=== PATIENT | female | born 1980 | race Caucasian/White ===

== ENCOUNTER → 2021-01-12 12:34 | Outpatient (CLI) | payer BC, SELFPAY ==
--- NOTE | ~2021-01-12 | MM_ITS ---
EXAMINATION: MM screening rohith BI w vargas HISTORY: Screening TECHNIQUE: Craniocaudal and mediolateral oblique 3-D tomosynthesis images were obtained and synthetic 2-D images were generated. CAD analysis was submitted and interpreted. COMPARISON: No prior mammogram is available for comparison at this institution. BREAST PARENCHYMAL COMPOSITION: There are scattered areas of fibroglandular density. FINDINGS: There is focal asymmetry laterally in the right breast on CC view, posterior third. There i s an additional focal asymmetry laterally in the left breast on CC view, posterior third. There are n o suspicious calcifications or architectural distortion. IMPRESSION: 1. Bilateral breast asymmetries. 2. Additional mammographic views and possible breast ultrasound are recommended. BI-RADS Category 0: Incomplete: Needs additional imaging evaluation. Reviewed, dictated and finalized at location A. IMPRESSION: 1. Bilateral breast asymmetries. 2. Additional mammographic views and possible breast ultrasound are recommended . BI-RADS Category 0: Incomplete: Needs additional imaging evaluation.
== END ==
PROVIDERS: Visit Provider Obstetrics & Gynecology
DX: Z12.31 Encounter for screening mammogram for malignant neoplasm of breast (principal); R92.8 Other abnormal and inconclusive findings on diagnostic imaging of breast
CPT/HCPCS: 77063; 77067

== ENCOUNTER → 2021-02-20 14:21 | Outpatient (CLI) | payer BC, SELFPAY ==
--- NOTE | ~2021-02-20 | MMUS_ITS ---
EXAMINATION: MM diagnostic rohith BI w vargas, US breast BI complete HISTORY: Follow-up breast asymmetries TECHNIQUE: Additional 3-D tomosynthesis images of the breasts were performed and synthetic 2-D images were generated. CAD analysis was submitted and interpreted. High resolution bilateral complete breas t ultrasound was performed. COMPARISON: 01/12/2021 BREAST PARENCHYMAL COMPOSITION: Breast composed of scattered areas of fibroglandular density. FINDINGS: MAMMOGRAPHIC FINDINGS: There is subtle asymmetry in the upper outer quadrant of the left breast. There is no mammographic ev idence for malignancy in the left breast. There are no suspicious calcifications or architectural dis tortion in either breast. ULTRASOUND: Complete bilateral US of all 4 quadrants of the breasts and retroareolar region was reviewed. In the right breast at 5:00, 3 cm from the nipple, there is a cluster of microcysts measuring 6 mm. In the l eft breast at 11:00, 4 cm from the nipple, there is a cluster of microcysts measuring 5 mm. No suspic ious masses to suggest malignancy. IMPRESSION: 1. No evidence for malignancy in either breast. 2. Routine yearly screening mammogram and regular clinical breast examination are recommended. BI-RADS Category 2: Benign finding(s). Reviewed, dictated and finalized at location A. IMPRESSION: 1. No evidence for malignancy in either breast. 2. Routine yearly screening mammogram and regular clinical breast examination a re recommended. BI-RADS Category 2: Benign finding(s).
== END ==
PROVIDERS: Visit Provider Obstetrics & Gynecology
DX: R92.8 Other abnormal and inconclusive findings on diagnostic imaging of breast (principal)
CPT/HCPCS: 76641; 77062; 77066; G0279

== ENCOUNTER → 2021-08-18 18:11 | Outpatient (CLI) | payer BC, SELFPAY ==
--- NOTE | ~2021-08-18 | MR_ITS ---
EXAMINATION: MR knee LT wo con DATE: 08/18/2021 18:44 INDICATION: Pain in the left knee for one year since twisting the knee. TECHNIQUE: Magnetic resonance imaging (MRI) of the left knee was performed without intravenous contra st. Sequences included axial PD-weighted FS FSE, coronal PD-weighted FSE and PD-weighted FS FSE, sagi ttal PD-weighted FSE, and sagittal T2-weighted FS FSE. COMPARISON: None. FINDINGS: Medial compartment: Meniscus is intact. Diffuse severe thinning of cartilage along the femoral and tibial surfaces, with subchondral T2 hyperintensity and linear hypointensity that may reflect microtrabecular fracture. Ost eophytosis. Lateral compartment: Meniscus intact. Mild diffuse thinning of cartilage. Patellofemoral compartment: Cartilage fissure at the lateral facet. 4 mm ossified fragment with low signal margins, may reflect a fractured osteophyte or old osteochondral defect. Osteophytosis. Extensor mechanism intact. Trace re tropatellar bursa fluid. Ligaments and tendons: The MCL LCL, ACL, and PCL are intact. Fluid: Trace joint fluid. Osseous/other: The marrow signal is benign and homogenous, except as reported above. IMPRESSION: 1. Findings concerning for a developing osteochondral lesion in the medial compartment. 2. Chondromalacia patellae. Reviewed, dictated and finalized at location K. IMPRESSION: 1. Findings concerning for a developing osteochondral lesion in the medial comp artment. 2. Chondromalacia patellae.
== END ==
PROVIDERS: Visit Provider Physician Assistant
DX: M25.562 Pain in left knee (principal); M94.272 Chondromalacia, left ankle and joints of left foot
CPT/HCPCS: 73721

== ENCOUNTER → 2022-01-05 06:49 | Outpatient (CLI) | payer BC, SELFPAY ==
--- NOTE | ~2022-01-05 | MR_ITS ---
EXAMINATION: MR lumbar spine wo con DATE: 01/05/2022 07:22 INDICATION: Acute left-sided low back pain without sciatica. TECHNIQUE: Magnetic resonance imaging (MRI) of the lumbar spine was performed without intravenous con trast. Sequences included sagittal T2-weighted FSE, sagittal T2-weighted FS FSE, sagittal T1-weighted FSE, and axial T2-weighted FSE. COMPARISON: None FINDINGS: There is 5 degrees dextrocurvature of lumbar spine. There are Schmorl's nodes at all levels . There is mild chronic anterior wedging of T12 and L1 vertebral bodies, likely physiologic. Interver tebral disc heights are normal. The distal spinal cord signal intensity is normal. The conus medullar is is at L1. The following disc levels are specifically discussed: L1-L2: The disc does not extend beyond the endplate margin. There is mild bilateral facet joint osteo arthritis. There is no neural foraminal stenosis. There is no central canal stenosis. L2-L3: The disc does not extend beyond the endplate margin. There is mild bilateral facet joint osteo arthritis. There is no neural foraminal stenosis. There is no central canal stenosis. L3-L4: The disc does not extend beyond the endplate margin. There is mild bilateral facet joint osteo arthritis. There is no neural foraminal stenosis. There is no central canal stenosis. L4-L5: The disc is bulging. There is mild bilateral facet joint osteoarthritis. There is mild bilater al neural foraminal stenosis. There is mild central canal stenosis. L5-S1: The disc does not extend beyond the endplate margin. There is mild bilateral facet joint osteo arthritis. There is no neural foraminal stenosis. There is no central canal stenosis. IMPRESSION: 1. Mild lumbar spondylosis. Reviewed, dictated and finalized at location A. IMPRESSION: 1. Mild lumbar spondylosis.
== END ==
PROVIDERS: PCP Physician Assistant; Visit Provider Physician Assistant
DX: M47.896 Other spondylosis, lumbar region (principal)
CPT/HCPCS: 72148

== ENCOUNTER → 2022-02-01 09:05 | Outpatient (CLI) | payer BC, SELFPAY ==
--- NOTE | ~2022-02-01 | US_ITS ---
US thyroid INDICATION: Nontoxic thyroid goiter. TECHNIQUE: Real-time sonographic images of the thyroid gland were obtained. COMPARISON: No prior studies for comparison. FINDINGS: The right thyroid lobe measures 4.6 x 1.5 x 1.2 cm. The left thyroid lobe measures 3.7 x 1 .3 x 1.2 cm. There is normal echotexture and echogenicity throughout the thyroid gland. No discrete n odules identified. Normal vascular flow is present. IMPRESSION: 1. Normal thyroid without discrete nodule or abnormal vascularity. Reviewed, dictated and finalized at location A.
== END ==
PROVIDERS: PCP Physician Assistant; Visit Provider Internal Medicine Endocrinology, Diabetes & Metabolism
DX: E04.9 Nontoxic goiter, unspecified (principal)
CPT/HCPCS: 76536

== ENCOUNTER → 2022-03-08 14:01 | Outpatient (CLI) | payer BC, SELFPAY ==
--- NOTE | ~2022-03-08 | MM_ITS ---
EXAMINATION: MM screening rohith BI w vargas HISTORY: Screening mammogram TECHNIQUE: Craniocaudal and mediolateral oblique 3-D tomosynthesis images were obtained and synthetic 2-D images were generated. CAD analysis was submitted and interpreted. COMPARISON: 02/20/2021, 01/12/2021 BREAST PARENCHYMAL COMPOSITION: There are scattered areas of fibroglandular density. FINDINGS: RIGHT BREAST: No suspicious mass, calcification, or architectural distortion are identified to sugges t malignancy. There has been no suspicious interval change. LEFT BREAST: There is a possible mass in the middle third of the upper outer quadrant breast 8 cm fro m the nipple. IMPRESSION: 1. Possible left breast mass. 2. Additional mammographic views and possible breast ultrasound are recommended. BI-RADS Category 0: Incomplete: Needs additional imaging evaluation. Reviewed, dictated and finalized at location A. IMPRESSION: 1. Possible left breast mass. 2. Additional mammographic views and possible breast ultrasound are recommended . BI-RADS Category 0: Incomplete: Needs additional imaging evaluation.
== END ==
PROVIDERS: PCP Physician Assistant; Visit Provider Obstetrics & Gynecology
DX: Z12.31 Encounter for screening mammogram for malignant neoplasm of breast (principal); R92.8 Other abnormal and inconclusive findings on diagnostic imaging of breast
CPT/HCPCS: 77063; 77067

== ENCOUNTER → 2022-03-22 09:14 | Outpatient (CLI) | payer BC, SELFPAY ==
--- NOTE | ~2022-03-22 | MMUS_ITS ---
EXAMINATION: MM diagnostic rohith LT w vargas, US breast LT limited HISTORY: Possible left breast mass in middle third of upper outer quadrant 8 cm from nipple reported on 03/08/2022 screening mammogram TECHNIQUE: Additional 3-D tomosynthesis images of the left breast were performed and synthetic 2-D im ages were generated. CAD analysis was submitted and interpreted. High resolution upper outer and lowe r-outer quadrant left breast ultrasound was performed. COMPARISON: 03/08/2022 screening mammogram 02/20/2021 bilateral diagnostic mammography and complete bilateral breast ultrasound 01/12/2021 bilateral screening mammogram BREAST PARENCHYMAL COMPOSITION: There are scattered areas of fibroglandular density. FINDINGS: MAMMOGRAPHIC FINDINGS: An at least several low-density small circumscribed opacities measuring up to 7 mm are identified in the outer left breast. ULTRASOUND: 1:00 5 cm from nipple: 4.4 mm rounded sonolucency without internal vascularity or posterior shadowing , likely a small cyst. No suspicious mass or shadowing is detected elsewhere in the upper outer or lower quadrants of the le ft breast IMPRESSION: 1. Probable benign cyst at 1:00 5 cm from nipple 2. 6 month diagnostic left mammogram and left breast ultrasound follow-up are recommended to confirm stability BI-RADS category 3, probably benign findings. Reviewed, dictated and finalized at location A. BUILDER IMPRESSION: 1. Probable benign cyst at 1:00 5 cm from nipple 2. 6 month diagnostic left mammogram and left breast ultrasound follow-up are r ecommended to confirm stability BI-RADS category 3, probably benign findings.
== END ==
PROVIDERS: PCP Physician Assistant; Visit Provider Obstetrics & Gynecology
DX: N63.20 Unspecified lump in the left breast, unspecified quadrant (principal); R92.8 Other abnormal and inconclusive findings on diagnostic imaging of breast
CPT/HCPCS: 76642; 77061; 77065; G0279

== ENCOUNTER → 2022-08-29 10:17 | Outpatient (CLI) | payer BC, SELFPAY ==
--- NOTE | ~2022-08-29 | US_ITS ---
Renal-Bladder ultrasound Clinical History: Bladder sling, pelvic pressure Technique: Real-time sonographic imaging of the kidneys and urinary bladder was performed. Findings: The right kidney measures 11.3 cm in length and the left kidney measures 10.3 cm. There is no hydronephrosis or renal calculus identified. Renal cortical echogenicity is within normal limits. No renal mass lesion is identified. The urinary bladder is moderately distended at the time of this exam. No intraluminal echoes are iden tified. No abnormal wall thickening is seen. Impression: Unremarkable ultrasound of the kidneys and urinary bladder. Reviewed, dictated and finalized at location M. Impression: Unremarkable ultrasound of the kidneys and urinary bladder.
== END ==
PROVIDERS: PCP Physician Assistant; Visit Provider Nurse Practitioner Adult Health
DX: R10.2 Pelvic and perineal pain (principal)
CPT/HCPCS: 76770

== ENCOUNTER → 2022-10-10 08:32 | Outpatient (CLI) | payer BC, SELFPAY ==
--- NOTE | ~2022-10-10 | MMUS_ITS ---
EXAMINATION: MM diagnostic rohith LT w vargas, US breast LT complete HISTORY: Six-month follow-up of probably benign left 1:00 breast cyst TECHNIQUE: Full field and spot left 3-D tomosynthesis images were performed and synthetic 2-D images were generated. CAD analysis was submitted and interpreted. High resolution complete left breast ultr asound examination: All 4 quadrants and subareolar area was performed. COMPARISON: 03/22/2022 diagnostic left mammogram and limited left breast ultrasound 03/08/2022 bilateral screening mammogram 02/20/2021 bilateral diagnostic mammography and complete bilateral breast ultrasound examination BREAST PARENCHYMAL COMPOSITION: There are scattered areas of fibroglandular density. FINDINGS: MAMMOGRAPHIC FINDINGS: At least several subcentimeter circumscribed opacities are noted in the posterior mid outer left rodri st (craniocaudal Tomosynthesis image 31/78). Approximately 7 mm mass or composite shadowing the anterior inner left breast (craniocaudal Tomosynth esis image 25/78). ULTRASOUND: 1:00 6.5 cm from nipple: 6.6 x 7.5 x 8.9 mm circumscribed sonolucency without internal vascularity or posterior shadowing, most consistent with simple cyst 9:00 5 cm from nipple: 3 x 6.6 x 5.9 mm parallel circumscribed heterogeneous mixed hypoechoic and hyp erechoic lesion, without internal vascularity or posterior shadowing, which appears benign No suspicious mass or shadowing of the left breast is detected. IMPRESSION: 1. Benign findings 2. Routine annual mammographic screening is recommended BI-RADS Category 2: Benign finding(s). Reviewed, dictated and finalized at location A. IMPRESSION: 1. Benign findings 2. Routine annual mammographic screening is recommended BI-RADS Category 2: Benign finding(s).
== END ==
PROVIDERS: PCP Physician Assistant; Visit Provider Obstetrics & Gynecology
DX: N60.02 Solitary cyst of left breast (principal)
CPT/HCPCS: 76641; 77061; 77065; G0279

== ENCOUNTER → 2023-05-02 11:36 | Outpatient (CLI) | payer OTHER, SELFPAY ==
--- NOTE | ~2023-05-02 | MM_ITS ---
EXAMINATION: MM screening rohith BI w vagras HISTORY: Screening mammogram TECHNIQUE: Craniocaudal and mediolateral oblique 3-D tomosynthesis images were obtained and synthetic 2-D images were generated. CAD analysis was submitted and interpreted. COMPARISON: 10/10/2022 diagnostic left mammogram and complete left breast ultrasound examination 03/22/2022 diagnostic left mammogram and limited left breast ultrasound 03/08/2022 bilateral screening mammogram BREAST PARENCHYMAL COMPOSITION: There are scattered areas of fibroglandular density. FINDINGS: Bilateral breast masses are suggested. Bilateral diagnostic mammography and breast ultrasou nd examination are recommended. IMPRESSION: 1. Bilateral breast masses 2. Bilateral diagnostic mammogram and breast ultrasound examination are recommended BI-RADS Category 0: Incomplete: Needs additional imaging evaluation. Reviewed, dictated and finalized at location A. OP IMPRESSION: 1. Bilateral breast masses 2. Bilateral diagnostic mammogram and breast ultrasound examination are recomme nded BI-RADS Category 0: Incomplete: Needs additional imaging evaluation.
== END ==
PROVIDERS: PCP Physician Assistant; Visit Provider Obstetrics & Gynecology
DX: Z12.31 Encounter for screening mammogram for malignant neoplasm of breast (principal); R92.8 Other abnormal and inconclusive findings on diagnostic imaging of breast
CPT/HCPCS: 77063; 77067

== ENCOUNTER → 2023-05-28 14:20 | Outpatient (CLI) | payer OTHER, SELFPAY ==
--- NOTE | ~2023-05-28 | MMUS_ITS ---
EXAMINATION: MM diagnostic rohith BI w vargas, US breast BI complete HISTORY: Follow-up bilateral breast masses. TECHNIQUE: Additional 3-D tomosynthesis images of the breasts were performed and synthetic 2-D images were generated. CAD analysis was submitted and interpreted. High resolution bilateral complete breas t ultrasound was performed. COMPARISON: Comparison to multiple prior studies sequentially, with oldest reviewed study dated 06/2020. BREAST PARENCHYMAL COMPOSITION: Breast composed of scattered areas of fibroglandular density FINDINGS: MAMMOGRAPHIC FINDINGS: There is an 11 mm mass in the upper outer quadrant of the right breast, middle third. There is a 12 m m mass in the upper outer quadrant of the left breast, midposterior depth. There are no suspicious ca lcifications or architectural distortion. ULTRASOUND: Complete bilateral US of all 4 quadrants of the breasts and retroareolar region was reviewed. Right breast: At 9:00, 9 cm from the nipple there is an 11 mm cyst. Left breast: At 1:00, 7 cm from the nipple there is an 11 mm cyst. At 9:00, 5 cm from the nipple, the re is a 6 mm cluster of microcysts. IMPRESSION: 1. No evidence for malignancy in either breast. Benign findings. 2. Routine yearly screening mammogram and regular clinical breast examination are recommended. BI-RADS Category 2: Benign finding(s). Reviewed, dictated and finalized at location A. CLERK IMPRESSION: 1. No evidence for malignancy in either breast. Benign findings. 2. Routine yearly screening mammogram and regular clinical breast examination a re recommended. BI-RADS Category 2: Benign finding(s).
== END ==
PROVIDERS: PCP Obstetrics & Gynecology; Visit Provider Obstetrics & Gynecology
DX: N63.11 Unspecified lump in the right breast, upper outer quadrant (principal); N63.21 Unspecified lump in the left breast, upper outer quadrant
CPT/HCPCS: 76641; 77062; 77066; G0279

== ENCOUNTER → 2023-07-09 13:28 | Outpatient (CLI) | payer OTHER, SELFPAY ==
--- NOTE | ~2023-07-09 | XR_ITS ---
EXAM: XR toe 1st RT min 2V DATE: 07/09/2023 13:44 HISTORY: Pain in right toe(s) . COMPARISON: None available. FINDINGS: Normal mineralization. No fracture or dislocation. No lytic or blastic lesion. Moderate de generative change at the first MTP joint. Bipartite first digit lateral sesamoid. No erosion or perio steal change. Soft tissues within normal limits. IMPRESSION: Moderate first MTP joint osteoarthritis. Reviewed, dictated and finalized at location K. EKEEPING ASSOCIATE
== END ==
PROVIDERS: PCP Physician Assistant; Visit Provider Physician Assistant
DX: M19.071 Primary osteoarthritis, right ankle and foot (principal)
CPT/HCPCS: 73660

== ENCOUNTER 2024-06-25 09:22 | Outpatient (CLI) | payer OTHER, SELFPAY ==
--- NOTE | ~2024-06-25 | MMUS_ITS ---
EXAMINATION: MM diagnostic rohith BI w vargas, US breast BI complete HISTORY: Follow-up breast asymmetries. TECHNIQUE: Additional 3-D tomosynthesis images of the breasts were performed and synthetic 2-D images were generated. CAD analysis was submitted and interpreted. High resolution bilateral complete breas t ultrasound was performed. COMPARISON: Comparison to multiple prior studies sequentially, with oldest reviewed study dated 02/11. BREAST PARENCHYMAL COMPOSITION: Not dense: There are scattered areas of fibroglandular density. FINDINGS: MAMMOGRAPHIC FINDINGS: There is a small radiolucent mass in the lower outer quadrant of the right breast, anterior-middle de pth. There are no suspicious calcifications or architectural distortion. There is a persistent focal asymmetry in the lower inner quadrant of the left breast, anterior depth. There are no suspicious tong cifications or architectural distortion. ULTRASOUND: Complete US of all 4 quadrants of the breast/s and retroareolar region was reviewed. Right breast: At 7:00, 6 cm from the nipple there is a 5 mm cyst corresponding to the mammographic fi nding. Left breast: At 2:00, 7 cm from the nipple there is a round hypoechoic 6 mm mass without posterior fe atures or internal vascularity, likely benign. At 8:00, 7 cm from the nipple there is a irregular sha ped hypoechoic structure with internal cystic changes, consistent with a cluster of microcysts measur ing 7 mm greatest dimension this corresponds to the area of asymmetry seen on mammography. IMPRESSION: 1. No evidence for malignancy in the right breast. Probable benign findings of the left breast. 2. Recommend 6 month follow-up diagnostic left mammogram and Limited left breast ultrasound BI-RADS category 3, probably benign findings. Reviewed, dictated and finalized at location [] [facility] IMPRESSION: 1. No evidence for malignancy in the right breast. Probable benign findings of the left breast. 2. Recommend 6 month follow-up diagnostic left mammogram and Limited left breas t ultrasound BI-RADS category 3, probably benign findings.
== END 2024-06-25 09:23 | disposition home or self-care (01) ==
LOC: MICIMG 09:22
PROVIDERS: PCP Obstetrics & Gynecology; Visit Provider Obstetrics & Gynecology
DX: N63.10 Unspecified lump in the right breast, unspecified quadrant (principal); N63.20 Unspecified lump in the left breast, unspecified quadrant; N60.02 Solitary cyst of left breast
CPT/HCPCS: 76641; 77062; 77066; G0279

== ENCOUNTER 2025-01-06 13:02 | Outpatient (CLI) | payer OTHER, SELFPAY ==
--- OUTSIDE RECORDS SUMMARY | 2024-12-17 09:40 | XMS_ITS ---
Author Organization [facility] ([address]) Address [address] [place] [address] Care Team Providers Care Inspector Motor Vehicles Name Role Phone Ten Lewis Primary Care Provider UnavailRebeca Krishna Unavailable [phone] Azam Arevalo [phone] REASON FOR VISIT Product or Supplement Purchase Encounters Encounter Location Date Provider Diagnosis [facility] ([address]) [address] [place] [address] 12/17/2024 Azam Arevalo Plan Of Treatment Next Appt Details Provider Name:Azam Arevalo , 01/14/2025 03:30:00 PM, [address], [place], [address], Provider Name:Ivory arguello, 02/25/2025 02:00:00 PM, [address], [address], [place], [address], Provider Name:Rebeca Hope , 08/12/2025 02:30:00 PM, [address], [place], [address], Progress Notes * Toshia HOROWITZDOB:1980 ( 44 yo F)Acc No.[id number]:12/17/2024 Purchase Patient: Toshia CINTRON Provider: Elizabeth Arevalo MD :1980 A ge:44 Y S ex:Female Date:12/17/2024 Address:[address] [place], [place] [id number] Pcp:ROSALIE Ziegler Subjective: * Chief Complaints: * 1 . Product or Supplement Purchase. * Medical History: Objective: * Vitals: Assessment: Plan: * Treatment: * Billing Information: * Visit Code: * Procedure Codes: * Electronic signature of Fariha Arevalo MD, FAAAAI on 01/06/2025 at 01:14 PM CDT Sign off status: Pending * Provider: Elizabeth Arevalo MD Date: 12/17/2024 Generated for Quang pierce/Samm/Gildardoitting on: 01/06/2025 01:14 PM CDT
--- NOTE | ~2025-01-06 | US_ITS ---
EXAMINATION: MM diagnostic rohith LT w vargas, US breast LT limited INDICATION: 44-year old female; BI-RADS 3, short-term follow-up probably benign left breast findings. COMPARISON: 06/25/2014 through 05/02/2023 TECHNIQUE: Digital breast tomosynthesis True lateral, CC view of LEFT breasts were obtained with computer-aided detection to assist in interpretation of the study. FINDINGS: There are scattered areas of fibroglandular density. The asymmetry of concern in the lower inner left breast redemonstrated is unchanged. This finding can be seen dating back to mammogram of 01/12/2021 and is therefore considered benign. LEFT BREAST ULTRASOUND FINDINGS: Targeted evaluation of the lower inner left breast was performed. 0.4 cm anechoic cyst at 2:00, 7 cm from the nipple is smaller in the interval compatible with a benign finding. 0.7 cm hypoechoic mass with circumscribed margins considered to represent cluster of cysts at 8:00, 7 cm from the nipple is unchanged. IMPRESSION: BENIGN LEFT BREAST MASSES. RECOMMENDATION: ANNUAL BILATERAL SCREENING MAMMOGRAPHY DUE IN 6 MONTHS. BI-RADS 2, BENIGN Reviewed, dictated and finalized at location B.
--- OUTSIDE RECORDS SUMMARY | 2025-01-06 13:14 | XMS_ITS | Clinical Summary ---
Author Organization [facility] at the Medical Office Building Address [address] [place] [address] Care Team Providers Care Artists' Booking Representative Name Role Phone Ten Yu Primary Care Provider [phone] Allergies No known active allergies Medications cholecalciferol (VITAMIN D-3) 5,000 unit capsule 1 capsule (5,000 Units total) daily Active cetirizine 10 mg capsule Rx: Zyrtec Allergy Active multivitamin (MULTIPLE VITAMINS DAILY ORAL) daily Active montelukast (SINGULAIR) 10 mg tablet Take 1 tablet (10 mg total) by mouth nightly Active EPINEPHrine 0.3 mg/0.3 mL auto-injection syringe EpiPen 2-Mark 0.3 mg/0.3 mL injection, auto-injector USE DIRECTED Active cyanocobalamin (Vitamin B-12) 1,000 mcg/mL injection INJECT 1 ML EVERY WEEK BY SUBCUTANEOUS ROUTE IN THE MORNING FOR 90 DAYS 3 Active olopatadine 0.6 % spray,non-aeros ol Administer into affected nostril(s) 2 (two) times a day Active hydrOXYzine (ATARAX) 25 mg tablet Take 1 tablet (25 mg total) by mouth nightly 90 tablet 3 3 Active escitalopram (Lexapro) 5 mg tablet Take 1 tablet (5 mg total) by mouth daily 90 tablet 3 4 Active ALPRAZolam (XANAX) 0.25 mg tabletIndicatio ns:Generalized anxiety disorder Take 1 tablet orally daily/p.r.n. panic attacks 4 Active buPROPion XL (WELLBUTRIN XL) 300 mg 24 hr tabletIndicatio ns:Generalized anxiety disorder Take 1 tablet (300 mg total) by mouth daily 4 Active naratriptan (AMERGE) 2.5 mg tablet TAKE 1 TABLET BY MOUTH ONCE, CAN REPEAT X1 AFTER 2-4 HOURS NEEDED FOR MIGRAINE 30 DAYS 4 Active topiramate (TOPAMAX) 25 mg capsule Take 1 capsule (25 mg total) by mouth 2 tablets in morning Active liothyronine (CYTOMEL) 5 mcg tabletIndicatio ns:Hypothyroidi sm due to Chelsy's thyroiditis TAKE 1 TABLET BY MOUTH 2 TIMES A DAY. 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 Pain of toe of right foot 07/01/2023 Acute low back pain 11/20/2022 Attention deficit disorder (ADD) without hyperac tivity 05/15/2022 Assessment & Plan (05/15/2022 10:16 AM HOCKEY SCOUT): All 3 of her sons have attention deficit she is always felt like she has attention deficit her cattle care worker was going to get her on some Concerta to help give her some and maybe help with this she is using her CPAP we agreed to give this a trial we did discuss med use potential side effects Ear pain, left 11/08/2021 Assessment & Plan (11/08/2021 10:50 AM CDT): Left ear canal with scratch no infection, will follow Chronic pain of left knee 10/23/2021 Routine general medical exam ination at a health care facility 08/23/2021 Assessment & Plan (11/12/2023 6:40 AM CDT): Reviewed hard copy of labs they will be scanned into her medical records Assessment & Plan (12/04/2022 7:35 AM CDT): Reviewed hard copy of labs they will be scanned into her medical records Assessment & Plan (08/24/2021 8:42 AM CDT): HEALTHCARE MAINTENANCE updated Pain of right thumb 01/23/2021 Assessment & Plan (01/23/2021 4:15 PM CDT): No trauma, will get x-rays, ice and aleve Thrush 12/19/2020 Assessment & Plan (12/19/2020 10:52 AM CDT): Possible, meds as ordered, follow up routine Left arm pain 12/19/2020 Assessment & Plan (12/19/2020 10:52 AM CDT): Ice and Medrol Dosepak along with range of motion exercises next step would be an x-ray and PT Acute pain of left knee 07/19/2020 Assessment & Plan (08/24/2021 8:49 AM CDT): Due to Mri sending to Ortho Jaw pain 06/02/2020 Assessment & Plan (06/02/2020 10:47 AM HOCKEY SCOUT): Due to tmj, see tmj plan TMJ (dislocation of temporomandibular joint), se quela 05/26/2020 Assessment & Plan (05/26/2020 7:10 AM HOCKEY SCOUT): Declines surgery consult, massage therapy, Chiropractor, muscle relaxer and medrol Vitamin D deficiency 02/25/2020 Assessment & Plan (11/12/2023 6:39 AM CDT): Continue vitamin Assessment & Plan (12/04/2022 7:35 AM CDT): Continue vitamin-D Assessment & Plan (05/15/2022 10:15 AM HOCKEY SCOUT): Continue meds Assessment & Plan (08/01/2020 4:09 PM CDT): CPM Atypical nevi 09/28/2019 Assessment & Plan (11/12/2023 6:39 AM CDT): 0 mapping performed today skin care discussed Assessment & Plan (12/04/2022 7:34 AM CDT): Mole map completed Assessment & Plan (08/24/2021 8:41 AM CDT): Mole map performed, skin care discusseed Assessment & Plan (09/29/2019 2:40 PM CDT): Annual mole map Screening, lipid 06/22/2019 Assessment & Plan (09/29/2019 2:41 PM CDT): Healthy diet and exercise, discussed TD Depression with anxiety 06/22/2019 Assessment & Plan (04/18/2023 6:54 AM HOCKEY SCOUT): This is not well controlled am going to add back 25 mg of Zoloft as she previously did well with this I will give her some hydroxyzine to take an hour before bed to help her sleep we did discuss the med use potential side effects she will update me in 4-6 weeks. There is no SI HI, open door open line Assessment & Plan (09/29/2019 2:41 PM CDT): Images from the original note were not included. The pharmacologic and nonpharmacologic treatment of anxiety/depression were discusses with the patient. Included was a discussion of the current treatment regimens and their proposed mechanism of action concerning brain chemistry. Discussed the role of counseling as an adjunct to medications should we agree to pursue this. The patient is non-suicidal, and agrees to inform us of any change in this status follow up in 4-6 weeks- sooner if any problems Other specified hypothyroidism 03/16/2019 Assessment & Plan (08/24/2021 8:42 AM CDT): Stable CPM Bilateral headaches 03/16/2019 Assessment & Plan (11/08/2021 10:48 AM CDT): controlled Other fatigue 03/16/2019 Assessment & Plan (09/29/2019 2:38 PM CDT): Improving on c-pap Furuncle 12/01/2018 Cellulitis of upper extremity 11/19/2018 Irritant contact dermatitis due to plants, excep t food 11/19/2018 ROX (obstructive sleep apnea) 04/28/2018 Assessment & Plan (11/12/2023 6:39 AM CDT): Encouraged CPAP Assessment & Plan (07/01/2023 9:31 AM HOCKEY SCOUT): Continue CPAP Assessment & Plan (12/04/2022 7:35 AM CDT): Continue CPAP Assessment & Plan (05/15/2022 10:15 AM HOCKEY SCOUT): Using c-pap Assessment & Plan (08/24/2021 8:41 AM CDT): treating Assessment & Plan (12/19/2020 10:53 AM CDT): Continue CPAP Assessment & Plan (09/29/2019 2:36 PM CDT): Using c-pap Dysmenorrhea 01/03/2018 Gastroesophageal reflux disease without esophagi tis 12/25/2017 Assessment & Plan (11/12/2023 6:39 AM CDT): Avoid spicy, fried, greasy foods Keep hydrated with clear liquids Elevate HOB 2- 3 inches Avoid or cut down on caffeine, chocolates, and ETOH No late meals, or heavy meals after 7 pm Reg daily exercise No tight fitting clothing Stop smoking - if smoker Watch for worsening symptoms - ie diarrhea, vomiting, nausea, blood per rectum, vomiting up blood ,fever, arthralgias, rash etc. RTC prn or if new symptoms arise Pt or parent verbalizes understanding Assessment & Plan (07/01/2023 9:31 AM HOCKEY SCOUT): Avoid spicy, fried, greasy foods Keep hydrated with clear liquids Elevate HOB 2- 3 inches Avoid or cut down on caffeine, chocolates, and ETOH No late meals, or heavy meals after 7 pm Reg daily exercise No tight fitting clothing Stop smoking - if smoker Watch for worsening symptoms - ie diarrhea, vomiting, nausea, blood per rectum, vomiting up blood ,fever, arthralgias, rash etc. RTC prn or if new symptoms arise Pt or parent verbalizes understanding Assessment & Plan (04/18/2023 6:52 AM HOCKEY SCOUT): Avoid spicy, fried, greasy foods Keep hydrated with clear liquids Elevate HOB 2- 3 inches Avoid or cut down on caffeine, chocolates, and ETOH No late meals, or heavy meals after 7 pm Reg daily exercise No tight fitting clothing Stop smoking - if smoker Watch for worsening symptoms - ie diarrhea, vomiting, nausea, blood per rectum, vomiting up blood ,fever, arthralgias, rash etc. RTC prn or if new symptoms arise Pt or parent verbalizes understanding Assessment & Plan (05/15/2022 10:15 AM HOCKEY SCOUT): Images from the original note were not included. Avoid spicy, fried, greasy foods Keep hydrated with clear liquids Elevate HOB 2- 3 inches Avoid or cut down on caffeines, chocolates, and ETOH No late meals, or heavy meals after 7 pm Reg daily exercise No tight fitting clothing Stop smoking - if smoker Watch for worsening symptoms - ie diarrhea, vomiting, nausea, blood per rectum, vomiting up blood ,fever, arthralgias, rash etc. RTC prn or if new symptoms arise Pt or parent verbalizes understanding Assessment & Plan (08/24/2021 8:41 AM CDT): Images from the original note were not included. Avoid spicy, fried, greasy foods Keep hydrated with clear liquids Elevate HOB 2- 3 inches Avoid or cut down on caffeines, chocolates, and ETOH No late meals, or heavy meals after 7 pm Reg daily exercise No tight fitting clothing Stop smoking - if smoker Watch for worsening symptoms - ie diarrhea, vomiting, nausea, blood per rectum, vomiting up blood ,fever, arthralgias, rash etc. RTC prn or if new symptoms arise Pt or parent verbalizes understanding Assessment & Plan (12/19/2020 10:52 AM CDT): Images from the original note were not included. Avoid spicy, fried, greasy foods Keep hydrated with clear liquids Elevate HOB 2- 3 inches Avoid or cut down on caffeines, chocolates, and ETOH No late meals, or heavy meals after 7 pm Reg daily exercise No tight fitting clothing Stop smoking - if smoker Watch for worsening symptoms - ie diarrhea, vomiting, nausea, blood per rectum, vomiting up blood ,fever, arthralgias, rash etc. RTC prn or if new symptoms arise Pt or parent verbalizes understanding Assessment & Plan (08/01/2020 4:08 PM CDT): Images from the original note were not included. Avoid spicy, fried, greasy foods Keep hydrated with clear liquids Elevate HOB 2- 3 inches Avoid or cut down on caffeines, chocolates, and ETOH No late meals, or heavy meals after 7 pm Reg daily exercise No tight fitting clothing Stop smoking - if smoker Watch for worsening symptoms - ie diarrhea, vomiting, nausea, blood per rectum, vomiting up blood ,fever, arthralgias, rash etc. RTC prn or if new symptoms arise Pt or parent verbalizes understanding Assessment & Plan (02/25/2020 9:20 AM CDT): Patient got no benefit by PPI, I suspect she is having gastroparesis I am going to give her some Reglan we did discuss the option of seeing a manufacturing clerk or get an upper GI with small-bowel follow-through Assessment & Plan (09/29/2019 2:36 PM CDT): Images from the original note were not included. Avoid spicy, fried, greasy foods Keep hydrated with clear liquids Elevate HOB 2- 3 inches Avoid or cut down on caffeines, chocolates, and ETOH No late meals, or heavy meals after 7 pm Reg daily exercise No tight fitting clothing Stop smoking - if smoker Watch for worsening symptoms - ie diarrhea, vomiting, nausea, blood per rectum, vomiting up blood ,fever, arthralgias, rash etc. 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 Recommend continuing Tirosint 112 mcg daily. If she would like to trial T4/T3, we would decrease Tirosint to 88 mcg and add liothyronine 5 mcg daily. She recently refilled Tirosint and will let me know when she gets close to being done with her script if she would like to try the alternate. We discussed that there are not dietary recommendations for Chelsy's thyroiditis, outside general healthy eating recommendations. Assessment & Plan (12/04/2022 7:35 AM CDT): This is well controlled patient is followed by endocrinology Assessment & Plan (05/15/2022 10:15 AM HOCKEY SCOUT): Working with endo Assessment & Plan (11/08/2021 10:49 AM CDT): controlled Assessment & Plan (12/19/2020 10:52 AM CDT): Controlled, continue current meds, follow-up routine Assessment & Plan (08/01/2020 4:08 PM CDT): CPM, f/u routine Assessment & Plan (02/25/2020 9:20 AM CDT): Continue current medicines pending new labs Depression 01/31/2017 Overview (09/29/2019): With Anxiety component Assessment & Plan (08/01/2020 4:08 PM CDT): Images from the original note were not included. The pharmacologic and nonpharmacologic treatment of anxiety/depression were discusses with the patient. Included was a discussion of the current treatment regimens and their proposed mechanism of action concerning brain chemistry. Discussed the role of counseling as an adjunct to medications should we agree to pursue this. The patient is non-suicidal, and agrees to inform us of any change in this status follow up in 4-6 months- sooner if any problems Nodular thyroid disease 01/31/2017 Generalized anxiety disorder 08/30/2016 Overview (09/29/2019): this is mild and she feels controlled, does not want zoloft at this time Assessment & Plan (11/12/2023 6:39 AM CDT): Images from the original note were not included. This was in good controlled but patient did not tolerate Zoloft am going to try a very low-dose of Lexap The pharmacologic and nonpharmacologic treatment of anxiety/depression were discusses with the patient. Included was a discussion of the current treatment regimens and their proposed mechanism of action concerning brain chemistry. Discussed the role of counseling as an adjunct to medications should we agree to pursue this. The patient is non-suicidal, and agrees to inform us of any change in this status follow up in 4-6 weeks- sooner if any problems Assessment & Plan (07/01/2023 9:31 AM HOCKEY SCOUT): Images from the original note were not included. This was in good controlled but patient did not tolerate Zoloft am going to try a very low-dose of Lexap The pharmacologic and nonpharmacologic treatment of anxiety/depression were discusses with the patient. Included was a discussion of the current treatment regimens and their proposed mechanism of action concerning brain chemistry. Discussed the role of counseling as an adjunct to medications should we agree to pursue this. The patient is non-suicidal, and agrees to inform us of any change in this status follow up in 4-6 weeks- sooner if any problems Assessment & Plan (12/04/2022 7:35 AM CDT): This is well controlled with no HI SI Assessment & Plan (05/15/2022 10:15 AM HOCKEY SCOUT): Well controlled, No SI/HI Assessment & Plan (11/08/2021 10:48 AM CDT): Well controlled Assessment & Plan (12/19/2020 10:52 AM CDT): This is mild and well controlled will continue to follow Assessment & Plan (08/01/2020 4:17 PM CDT): Well controlled Assessment & Plan (02/25/2020 9:19 AM CDT): This is mild well controlled will continue to follow Assessment & Plan (09/29/2019 2:40 PM CDT): Images from the original note were not included. The pharmacologic and nonpharmacologic treatment of anxiety/depression were discusses with the patient. Included was a discussion of the current treatment regimens and their proposed mechanism of action concerning brain chemistry. Discussed the role of counseling as an adjunct to medications should we agree to pursue this. 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 Assessment & Plan (12/04/2022 7:35 AM CDT): This is well controlled with no HI SI continue to follow Assessment & Plan (05/15/2022 10:14 AM HOCKEY SCOUT): This is well controlled will continue current meds follow-up routine Encounters Date Type Department Care Team Description 10/18/2024 Results Follow-Up [facility] Medicine Endocrinology Metabolism and Lipid [address] [place] [address] [place] [id number] Nathaly Gupta MD TSH, T3, free, T4, free 10/07/2024 Orders Only [facility] Medicine Endocrinology Metabolism and Lipid [address] [place] [address] [place] [phone] To Avilez RN 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 (Primary Dx) from Last 3 Months Immunizations Immunization Administration Dates Next Due Influenza, Quadrivalent, Luz Marina l Culture-based MDCK, Preservative Free, Antibiotic Free, Intramuscular 02/29/2020 Influenza, Quadrivalent, Spl it, Intramuscular 01/31/2018 Influenza, Quadrivalent, Spl it, Preservative Free, Intramuscular 02/15/2023,03/09/2022,01/23/2021,02/23,02/08/2017,02/17/2016 Influenza, Trivalent, IM (MDV) 02/13/2016,2013 Influenza, Unspecified 02/15/2023,2021,01/23/2021,02/10,02/23/2019,01/31/2018 Moderna SARS-CoV-2 Monovalen t Vaccination (12+ YRS) 08/11/2020,07/15/2020,06/17/2020 Surgical History Surgery Date Site/Laterality Comments BLADDER SURGERY 02/27/2019 Bladder sling/Dr Valencia TONSILLECTOMY TYMPANOSTOMY TUBE PLACEMENT TOE SURGERY FRACTURE SURGERY 2007 ABLATION 10/29/2022 Medical History Medical History Date Comments Thyroid disease Sleep apnea, obstructive Headache Environmental allergies GERD (gastroesophageal reflux disease) Anxiety Depression Migraines Menstrual problem Family History Medical History Relation Name Comments Heart disease Father Hyperlipidemia Father Hypertension Father Asthma Maternal Grandmother Pulos Asthma Mother Aileen Castano Depression Mother Aileen Castano Diabetes Mother Aileen Castano Hyperlipidemia Mother Aileen Castano Hypertension Mother Aileen Castano Hypothyroidism Mother Aileen Castano Migraines Mother Aileen Castano Rheum arthritis Mother Aileen Castano Alcohol abuse Paternal Grandfather Get Castano Asthma Sister Rachael Kim Relation Name Status Comments Father Alive Maternal Grandfather Maternal Grandmother Pulos Mother Aileen Castano Alive Paternal Grandfather Get Castano Paternal Grandmother Sister Rachael Kim Social History Tobacco Use Types Packs/Day Years Used Date Smoking Tobacco: Never Passive Smoke Exposure: Never Smokeless Tobacco: Never Tobacco Cessation:Counseling Given: Not Answered Alcohol Use Standard Drinks/Week Comments Yes 0 (1 standard drink = 0.6 oz pur e alcohol) AUDIT-C Answer Date Recorded Q1: How often do you have a drink containing alc ohol? Monthly or less 11/13/2023 Q2: How many drinks containi ng alcohol do you have on a typical day when you are drinking? 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 Not on file Not on fi le Obstetrics History Last Filed Vital Signs Vital Sign Reading Time Taken Comments Blood Pressure 124/80 11/18/2023 2:03 PM CDT Pulse 75 11/18/2023 2:03 PM CDT Temperature 36.8 C (98.3 F) 11/18/2023 2:03 PM CDT Respiratory Rate 16 11/13/2023 1:49 PM CDT Oxygen Saturation 99% 11/13/2023 1:49 PM CDT Inhaled Oxygen Concentration - - Weight 92.5 kg (204 lb) 11/18/2023 2:03 PM CDT Height 170.2 cm (5' 7) 11/18/2023 2:03 PM CDT Body Mass Index 31.95 11/18/2023 2:03 PM CDT Plan of Treatment Health Maintenance Due Date Last Done Comments Breast Cancer Screening-Mammogram 1980 Cervical Cancer Screening 1980 DTaP/Tdap/Td Vaccine (1 - Tdap) 09/01/1991 Hepatitis B Screening 1998 HPV Vaccines (1 - 3-dose SCDM series) 09/01/2007 Covid-19 Vaccine ( season) 2024 02/15/2023, 04/11/2022, 05/19/2021, Additional history exists Depression Screening 07/01/2024 07/01/2023, 05/15/2022, 12/19/2020, Additional history exists Regular Well Visit/Exam 18-64 11/12/2024 11/13/2023, 12/04/2022, 08/24/2021, Additional history exists Influenza Vaccine (#1) 2025 , 02/15/2023, 03/09/2022, Additional history exists Hepatitis C Screening Completed 06/03/2014 Pneumococcal vaccine <65 Aged Out No longer eligible based on patient's age to complete this topic Varicella Vaccines Discontinued Procedures Procedure Name Priority Date/Time Associated Diagnosis Comments T4, FREE Routine 10/12/2024 9:13 AM CDT 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 T3, FREE Routine 10/12/2024 9:13 AM CDT 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 TSH Routine 10/12/2024 9:13 AM CDT 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 SERUM HEPATITIS C AB Routine 06/03/2014 9:28 AM HOCKEY SCOUT from Last 3 Months or Most Recently Relevant to Health Maintenance Results * T3, free (10/12/2024 9:13 AM CDT) Free T3 3.8 2.3 - 4.2 pg/mL [facility] Blood 10/12/2024 9:13 AM CDT 10/12/2024 9:13 AM CDT us Nathaly Gupta MD LAB BLOOD ORDERABLES Fin al Result Performing Organization Address [facility] Co de Phone Number [facility] [address] [place] [address] * TSH (10/12/2024 9:13 AM CDT) TSH 0.44 mIU/L [facility] Comment: Reference Range > or = 20 Years 0.40-4.50 Ranges First trimester 0.26-2.66 Second trimester 0.55-2.73 Third trimester 0.43-2.91 Blood 10/12/2024 9:13 AM CDT 10/12/2024 9:13 AM CDT Nathaly Gupta MD LAB BLOOD ORDERABLES Fin al Result Performing Organization Address [facility] de Phone Number [facility] [address] [place] [address] * T4, free (10/12/2024 9:13 AM CDT) Free T4 1.0 0.8 - 1.8 ng/dL [facility] Blood 10/12/2024 9:13 AM CDT 10/12/2024 9:13 AM CDT Nathaly Gupta MD LAB BLOOD ORDERABLES Fin al Result Performing Organization Address [facility] de Phone Number [facility] [address] [place] [address] * Serum Hepatitis C ab (06/03/2014 9:28 AM HOCKEY SCOUT) HCV ab Negative NEG HISTORICAL RESULTS Serum 06/03/2014 9:28 AM HOCKEY SCOUT Historical Provider LAB BLOOD ORDERABLES Mary l Result Performing Organization Address [facility] Co de Phone Number HISTORICAL RESULTS from Last 3 Months or Most Recently Relevant to Health Maintenance Insurance [facility] PLUS [facility] PLUS Care Teams Artists' Booking Representative Relationship Specialty Start Date End Date Ten Yu PA PCP - General 10/09/18
--- OUTSIDE RECORDS SUMMARY | 2025-01-06 13:16 | XMS_ITS | Encounter Summary ---
Author Organization [facility]/Health system Facility Care Team Providers Care Oncology Navigator Name Role Phone Ten Yu Primary Care Provider [phone] Encounter Details Date Type Department Care Team (Latest Contact Info) Description 07/12/2016 Orders Only [facility]IN[facility] Provider, MD Richard [address] [place] [id number] Social History Tobacco Use Types Packs/Day Years Used Date Smoking Tobacco: Never Comments Unknown Sex and Gender Information Value Date Recorded Sex Assigned at Not on file Legal Sex Female 3:46 AM ACCOUNT ENGINEER Gender Identity Female 02/17/2020 12:44 PM CDT Sexual Orientation Straight 02/17/2020 12 :44 PM CDT documented as of this encounter Plan of Treatment Not on file documented as of this encounter Procedures Procedure Name Priority Date/Time Associated Diagnosis Comments SCAN - LABS 07/12/2016 12:00 AM ACCOUNT ENGINEER documented in this encounter Results * SCAN - LABS (07/12/2016 12:00 AM ACCOUNT ENGINEER) Narrative 07/12/2016 12:00 AM ACCOUNT ENGINEER Ordered by an unspecified provider. Historical Provider Final Res ult documented in this encounter Visit Diagnoses Not on filedocumented in this encounter Care Teams Oncology Navigator Relationship Specialty Start Date End Date Ten Yu PA PCP - General 10/09/18 documented as of this encounter
--- OUTSIDE RECORDS SUMMARY | 2025-01-06 13:16 | XMS_ITS | Encounter Summary ---
Author Organization 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 Historical Provider [facility] Final Result documented in this encounter Visit Diagnoses Not on filedocumented in this encounter Care Teams Processor Inspector Relationship Specialty Start Date End Date Ten Yu PA PCP - General 10/09/18 documented as of this encounter
--- OUTSIDE RECORDS SUMMARY | 2025-01-06 13:16 | XMS_ITS | Encounter Summary ---
Author Organization 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 Historical Provider Final Res ult documented in this encounter Visit Diagnoses Not on filedocumented in this encounter Care Teams Chronic Care Nurse Relationship Specialty Start Date End Date Ten Yu PA PCP - General 10/09/18 documented as of this encounter
--- OUTSIDE RECORDS SUMMARY | 2025-01-06 13:16 | XMS_ITS | Encounter Summary ---
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 Historical Provider Final Res ult documented in this encounter Visit Diagnoses Not on filedocumented in this encounter Care Teams Missile Control Pilot Relationship Specialty Start Date End Date Ten Yu PA PCP - General 10/09/18 documented as of this encounter
--- OUTSIDE RECORDS SUMMARY | 2025-01-06 13:16 | XMS_ITS | Patient Health Record ---
Author Organization [facility] [employer] [place] ([address]) Address [address] [place] [address] Care Team Providers Care Trim Mechanic Name Role Phone Ten Lewis Primary Care Provider UnavailRebeca Krishna Unavailable [phone] Azam Arevalo Unavailable [phone] Dr. Harry Baker Unavailable [phone] Ashley Rodriguez Unavailable [phone] Ivory Johnston Unavailable [phone] Allergies No Known Allergies Results Component Value Reference Range Notes HRT Female Pre Pellet Reviewed date:06/22/2024 12:19:10 PM Interpretation: Performing Lab:[facility], [address] [place] [id number], Phone - [phone], Director - PhDRicchimirai Notes/Report: Glucose 95 70-99 mg/dL BUN 15 6-24 mg/dL Creatinine 0.97 0.57-1.00 mg/dL eGFR 74 >59 mL/min/1.73 BUN/Creatinine Ratio 15 9-23 Sodium 141 134-144 mmol/L Potassium 4.3 3.5-5.2 mmol/L Chloride 105 96-106 mmol/L Carbon Dioxide, Total 20 20-29 mmol/L Calcium 9.1 8.7-10.2 mg/dL Protein, Total 6.3 6.0-8.5 g/dL Albumin 4.1 3.9-4.9 g/dL Globulin, Total 2.2 1.5-4.5 g/dL Bilirubin, Total 0.3 0.0-1.2 mg/dL Alkaline Phosphatase 100 44-121 IU/L AST (SGOT) 16 0-40 IU/L ALT (SGPT) 16 0-32 IU/L Vitamin B12 9676 817-2778 pg/mL Vitamin D, 25-Hydroxy 44.7 30.0-100.0 ng/mL Vitamin D deficiency has been defined by the [place] of Medicine and an Endocrine Society practice guideline as a level of serum 25-OH vitamin D less than 20 ng/mL (1,2). The Endocrine Society went on to further define vitamin D insufficiency as a level between 21 and 29 ng/mL (2). 1. IOM ([place] of Medicine). 2010. Dietary reference intakes for calcium and D. [place]: The National Academies Press. 2. Soham MF, Earl GRAYSON, Darlyn DAMIAN, et al. Evaluation, treatment, and prevention of vitamin D deficiency: an Endocrine Society clinical practice guideline. JCEM. 2010; 96(7):1911-30. TSH 0.165 0.450-4.500 uIU/mL Triiodothyronine (T3), Free 3.9 2.0-4.4 pg/mL T4,Free(Direct) 1.01 0.82-1.77 ng/dL Thyroid Peroxidase (TPO) Ab <9 0-34 IU/mL Testosterone 19 4-50 ng/dL FSH 8.0 Adult Female Range Follicular phase 3.5 - 12.5 Ovulation phase 4.7 - 21.5 Luteal phase 1.7 - 7.7 Postmenopausal 25.8 - 134.8 Estradiol 122.0 Adult Female Range Follicular phase 12.5 - 166.0 Ovulation phase 85.8 - 498.0 Luteal phase 43.8 - 211.0 Postmenopausal <6.0 - 54.7 1st trimester 215.0 - >4300.0 Christina ECLIA methodology WBC 7.3 3.4-10.8 x10E3/uL RBC 4.31 3.77-5.28 x10E6/uL Hemoglobin 12.1 11.1-15.9 g/dL Hematocrit 38.3 34.0-46.6 % MCV 89 79-97 fL MCH 28.1 26.6-33.0 pg MCHC 31.6 31.5-35.7 g/dL RDW 13.5 11.7-15.4 % Platelets 312 150-450 x10E3/uL Neutrophils 71 Not Estab. % Lymphs 20 Not Estab. % Monocytes 6 Not Estab. % Eos 2 Not Estab. % Basos 1 Not Estab. % Neutrophils (Absolute) 5.2 1.4-7.0 x10E3/uL Lymphs (Absolute) 1.4 0.7-3.1 x10E3/uL Monocytes(Absolute) 0.5 0.1-0.9 x10E3/uL Eos (Absolute) 0.1 0.0-0.4 x10E3/uL Baso (Absolute) 0.1 0.0-0.2 x10E3/uL Immature Granulocytes 0 Not Estab. % Immature Grans (Abs) 0.0 0.0-0.1 x10E3/uL -Uric Acid, Serum Reviewed date:06/22/2024 12:18:55 PM Interpretation: Performing Lab:[employer] [employer] [address] [id number], Phone - [phone], Director - [facility] Notes/Report: Uric Acid 4.6 2.6-6.2 mg/dL Therapeutic ta rget for gout patients: <6.0 -Hemoglobin A1c Reviewed date:06/22/2024 12:19:03 PM Interpretation: Performing Lab:[facility] [address] [id number], Phone - [phone], Director - [facility] Notes/Report: Hemoglobin A1c 5.5 4.8-5.6 % . Prediabetes: 5.7 - 6.4 Diabetes: >6.4 Glycemic control for adults with diabetes: <7.0 -Urinalysis, Complete Reviewed date:06/22/2024 12:19:03 PM Interpretation: Performing Lab:[facility] [address] [id number], Phone - [phone], Director - [facility] Notes/Report: Specific Wilson 1.022 1.005-1.030 pH 6.0 5.0-7.5 Urine-Color Yellow Yellow Appearance Cloudy Clear WBC Esterase 2+ Negative Protein Trace Negative/Trace Glucose Negative Negative Ketones Negative Negative Occult Blood Negative Negative Bilirubin Negative Negative Urobilinogen,Semi-Qn 0.2 0.2-1.0 mg/dL Nitrite, Urine Negative Negative Microscopic Examination See below: Micr oscopic was indicated and was performed. WBC 11-30 0 - 5 /hpf RBC 0-2 0 - 2 /hpf Epithelial Cells (non renal) >10 0 - 10 /hpf Casts None seen None seen /lpf Bacteria Many None seen/Few -Insulin, Fasting Reviewed date:06/22/2024 12:19:03 PM Interpretation: Performing Lab:[facility] [address] [id number], Phone - [phone], Director - [facility] Notes/Report: Insulin 16.6 2.6-24.9 uIU/mL -Ferritin, Serum Reviewed date:06/22/2024 12:18:55 PM Interpretation: Performing Lab:[facility] [address] [id number], Phone - [phone], Director - [facility] Notes/Report: Ferritin 27 15-150 ng/mL -C-Reactive Protein, Quant Reviewed date:06/22/2024 12:18:55 PM Interpretation: Performing Lab:[facility] [address] [id number], Phone - [phone], Director - [facility] Notes/Report: C-Reactive Protein, Quant 10 0-10 mg/L -Lipid Panel With LDL/HDL Ra rosaura Reviewed date:06/22/2024 12:18:55 PM Interpretation: Performing Lab:[facility] [address] [id number], Phone - [phone], Director - [facility] Notes/Report: Cholesterol, Total 210 100-199 mg/dL Triglycerides 76 0-149 mg/dL HDL Cholesterol 77 >39 mg/dL VLDL Cholesterol Samuel 13 5-40 mg/dL LDL Chol Calc (NIH) 120 0-99 mg/dL LDL/HDL Ratio 1.6 0.0-3.2 ratio LDL/HDL Ratio Men Women 1/2 Avg.Risk 1.0 1.5 Avg.Risk 3.6 3.2 2X Avg.Risk 6.2 5.0 3X Avg.Risk 8.0 6.1 -IGF-1 Reviewed date:06/22/2024 12:18:55 PM Interpretation: Performing Lab:[facility], [address] [place], [place] [id number], Phone - [phone], Director - [place] Notes/Report: Insulin-Like Growth Factor I 115 74-239 ng/mL Apo A1 + B + Ratio Reviewed date:06/22/2024 12:18:55 PM Interpretation: Performing Lab:[facility] [place], [address] [place], [place] [id number], Phone - [phone], Director - [place] Notes/Report: Apolipoprotein A-1 203 116-209 mg/dL Apolipoprotein B 91 <90 mg/dL Desirable < 90 Borderline High 90 - 99 High 100 - 130 Very High >130 ASCVD RISK THERAPEUTIC TARGET CATEGORY APO B (mg/dL) . Very High Risk <80 (if extreme risk <70) High Risk <90 Moderate Risk <90 Apolipo. B/A-1 Ratio 0.4 0.0-0.6 ratio Apolipoprotein B/A-1 Ratio Male Female Avg.Risk 0.7 0.6 2X Avg.Risk 0.9 0.9 3X Avg.Risk 1.0 1.0 Reason For Referral No Information Medications Medication SIG (Take, Route, Frequency, Duration) Notes Start Date End Date Status Venlafaxine HCl 37.5 MG 1 tablet with food Orally Once a day Active Meloxicam 7.5 MG 1 tablet Orally Once a day Active VITAMIN D3 125 mcg 1 cap(s) orally once a day Active Rizatriptan Benzoate 10 MG 1 tablet Orally once, may repeat x1 after 2-4 hours; Duration: 30 days As needed for migraine 02/13/2024 Not-Taking TRIAMCINOLONE ACETONIDE TOPICAL 0.1% 1 jimbo applied topically twice a day after shots Active Propranolol HCl 10 MG 1 tab at bedtime x7 days, then increase to 2 tablets at bedtime thereafter Orally as directed; Duration: 30 days 11/26/2024 Active NASAL WASHES N/A as directed intranasally as needed; Duration: 30 Active ZYRTEC 10 mg 1 tab(s) orally once a day, PRN and on days of SCIT; Duration: 30 days Active Medrol 4 MG 6 tabs Day 1, 5 tabs Day 2, 4 tabs Day 3, 3 tabs Day 4, 2 tabs Day 5, 1 tab Day 6, then stop, orally take full dose in AM with meals; Duration: 6 days 07/10/2023 Not-Taking SIT (TRADITIONAL) variable per schedule SC per schedule; Duration: to be determined Active EPINEPHRINE 0.3 mg 0.3 mg intramuscularly once; Duration: 1 dose(s) Active FAMOTIDINE 40 mg 2 tab(s) orally 30 minutes prior to SCIT dosing; Duration: 30 days Active SINGULAIR 10 mg 1 tab(s) orally once a day Active Famotidine 40 MG 2 tab(s) orally 30 minutes prior to SCIT dosing; Duration: 30 days Active EPINEPHrine 0.3 MG 0.3 MG INTRAMUSCULARLY ONCE; Duration: 1 DOSE(S) *Please review and pick correct strength-formula tion from [employer] options. If intended option is not shown, discontinue and re-order from Quick Search* Active Montelukast Sodium 10 MG TAKE 1 TABLET BY MOUTH EVERY DAY; Duration: 90 Active buPROPion HCl ER (XL) 300 MG 1 tab(s) orally every 24 hours Active Eletriptan Hydrobromide 40 MG 1 tablet Orally once, can repeat x1 after 2-4 hours As needed for migraine (max 2tabs/day) 02/26/2024 Active OLOPATADINE NASAL 665 mcg/inh 2 spray(s) intranasally 2 times a day; Duration: 30 day(s) Not-Taking Flonase Allergy Relief 50 MCG/ACT 2 spray(s) intranasally (avoid nasal septum) Qday; Duration: 30 days Not-Taking Triamcinolone Acetonide 0.1 % 1 jimbo applied topically twice a day after shots Not-Taking Tirosint 100 MCG 1 CAP(S) ORALLY ONCE A DAY *Please review and pick correct strength-formula tion from [employer] options. If intended option is not shown, discontinue and re-order from Quick Search* Active Liothyronine Sodium 5 MCG 1 tab(s) orally once a day Active ZyrTEC Allergy 10 MG 1 tab(s) orally once a day, PRN and on days of SCIT; Duration: 30 days Active Vitamin D3 125 MCG 1 CAP(S) ORALLY ONCE A DAY *Please review and pick correct strength-formula tion from [employer] options. If intended option is not shown, discontinue and re-order from Quick Search* Active Immunizations Vaccine Route Administration Date Status Comme nts Fluzone Quadrivalent Unknown 02/25/2017 Administered Influenza Unknown 02/13/2016 Administered NOC Fluzone Quadrivalent Unknown 06/02/2018 Refused Flucelvax Unknown 02/23/2019 Refused NOC Flucelevax Quadrivalent IM Intramuscular 02/29/2020 Administered COVID-19 (Moderna) Unknown 08/11/2020 Administered COVID-19 (Moderna) Unknown 05/19/2021 Administered Fluzone, quadrivalent, preservative free Unknown 01/23/2021 Administered Social History Tobacco Use: Social History Observation Description Date Details (start date - stop date) Never Smoker NA - NA Tobacco Control (Standard) Question Answer Notes Tobacco use: Nonsmoker AUDIT-C (Standard) Question Answer Notes Did you have a drink containing alcohol in the p ast year? 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 confirmed Problem Information temporarily unavailable Migraine without aura, not intractable, without status migrainosus (G43.009) Active confirmed Problem Information temporarily unavailable Migraine with aura, not intractable, without status migrainosus (G43.109) Active confirmed Problem Information temporarily unavailable Chronic migraine without aura, not intractable, without status migrainosus (G43.709) Active confirmed Problem Information temporarily unavailable Chronic tension-type headache, intractable (G44.221) Active confirmed Problem Information temporarily unavailable Obstructive sleep apnea (adult) (pediatric) (G47.33) Active confirmed Problem Information temporarily unavailable Other chronic allergic conjunctivitis (H10.45) Active confirmed Problem Information temporarily unavailable Allergic rhinitis due to pollen (J30.1) Active confirmed Problem Information temporarily unavailable Allergic rhinitis due to animal (cat) (dog) hair and dander (J30.81) Active confirmed Problem Information temporarily unavailable Other allergic rhinitis (J30.89) Active confirmed Problem Information temporarily unavailable Other amnesia (R41.3) Active confirmed Problem Information temporarily unavailable Other malaise (R53.81) Active confirmed Problem Information temporarily unavailable Other fatigue (R53.83) Active confirmed Problem Information temporarily unavailable Abnormal weight gain (R63.5) Active confirmed Problem Information temporarily unavailable Decreased libido (R68.82) Active confirmed Problem Information temporarily unavailable Allergic rhinitis due to pollen (J30.1) Active confirmed Problem Information temporarily unavailable Allergic rhinitis due to animal (cat) (dog) hair and dander (J30.81) Active confirmed Problem Information temporarily unavailable Other allergic rhinitis (J30.89) Active confirmed Problem Information temporarily unavailable Other chronic allergic conjunctivitis (H10.45) Active confirmed Problem Information temporarily unavailable Headache (R51) Active confirmed Problem Information temporarily unavailable Rash and other nonspecific skin eruption (R21) Active confirmed Problem Information temporarily unavailable Elevated blood-pressure reading, without diagnosis of hypertension (R03.0) Active confirmed Problem Information temporarily unavailable Vitamin D deficiency, unspecified (E55.9) Active confirmed Problem Information temporarily unavailable Adverse effect of other drugs, medicaments and biological substances, subsequent encounter (T50.995D) Active confirmed Problem Information temporarily unavailable Depression, unspecified (F32.A) Active confirmed Problem Information temporarily unavailable Irritability and anger (R45.4) Active confirmed Vital Signs Respiratory Rate 17 /min 12/17/2024 Oximetry 98 % 12/17/2024 Blood pressure diastolic 80 mm Hg 12/17/2024 Height 66 in 12/17/2024 Blood pressure systolic 119 mm Hg 12/17/2024 Weight 215.8 lbs 12/17/2024 BMI 34.83 kg/m2 12/17/2024 Encounters Encounter Location Date Provider Diagnosis [facility] [address] [facility] [employer] [address] [address] 11/17/2024 Azam Arevalo Allergic rhinitis du e to pollen J30.1 ; Other allergic rhinitis J30.89 ; Allergic rhinitis due to animal (cat) (dog) hair and dander J30.81 and Other chronic allergic conjunctivitis H10.[address] [address] 10/15/2024 Azam Arevalo Allergic rhinitis du e to pollen J30.1 ; Other allergic rhinitis J30.89 ; Allergic rhinitis due to animal (cat) (dog) hair and dander J30.81 and Other chronic allergic conjunctivitis H10.45 [facility] [address] [place] [phone] 10/12/2024 Azam Mickey Allergic rhinitis du e to pollen J30.1 ; Other allergic rhinitis J30.89 ; Allergic rhinitis due to animal (cat) (dog) hair and dander J30.81 and Other chronic allergic conjunctivitis H10.45 [facility] [address] [place] [phone] 10/08/2024 Azam Arevalo Allergic rhinitis du e to pollen J30.1 ; Other allergic rhinitis J30.89 ; Allergic rhinitis due to animal (cat) (dog) hair and dander J30.81 and Other chronic allergic conjunctivitis H10.45 [facility] [address] [place] [phone] 09/08/2024 Azam Arevalo Allergic rhinitis du e to pollen J30.1 ; Other allergic rhinitis J30.89 ; Allergic rhinitis due to animal (cat) (dog) hair and dander J30.81 and Other chronic allergic conjunctivitis H10.45 [facility] [address] [place] [phone] 08/03/2024 Azam Arevalo Allergic rhinitis du e to pollen J30.1 ; Other allergic rhinitis J30.89 ; Allergic rhinitis due to animal (cat) (dog) hair and dander J30.81 and Other chronic allergic conjunctivitis H10.45 [facility] [address] [place] [phone] 06/29/2024 Azam Arevalo Allergic rhinitis du e to pollen J30.1 ; Other allergic rhinitis J30.89 ; Allergic rhinitis due to animal (cat) (dog) hair and dander J30.81 and Other chronic allergic conjunctivitis H10.45 [facility] [address] [place] [phone] 06/01/2024 Azam Arevalo Allergic rhinitis du e to pollen J30.1 ; Other allergic rhinitis J30.89 ; Allergic rhinitis due to animal (cat) (dog) hair and dander J30.81 and Other chronic allergic conjunctivitis H10.45 [facility] [address] [place] [address] [employer] [address] [address] 04/30/2024 Azam Arevalo Allergic rhinitis du e to pollen J30.1 ; Other allergic rhinitis J30.89 ; Allergic rhinitis due to animal (cat) (dog) hair and dander J30.81 and Other chronic allergic conjunctivitis H10.45 [facility] [address] [place] [phone] 04/02/2024 Azam Arevalo Allergic rhinitis du e to pollen J30.1 ; Other allergic rhinitis J30.89 ; Allergic rhinitis due to animal (cat) (dog) hair and dander J30.81 and Other chronic allergic conjunctivitis H10.45 [facility] [address] [place] [phone] 02/04/2024 Azam Arevalo Allergic rhinitis du e to pollen J30.1 ; Other allergic rhinitis J30.89 ; Allergic rhinitis due to animal (cat) (dog) hair and dander J30.81 and Other chronic allergic conjunctivitis H10.45 [facility] [address] [place] [address] [employer] [address] [address] 01/28/2024 Azam Arevalo Allergic rhinitis du e to pollen J30.1 ; Other allergic rhinitis J30.89 ; Allergic rhinitis due to animal (cat) (dog) hair and dander J30.81 and Other chronic allergic conjunctivitis H10.45 [facility] [address] [place] [phone] 06/04/2024 Ivory Johnston Chronic migraine without aura, not intractable, without status migrainosus G43.709 and Chronic tension-type headache, intractable G44.221 [facility] [address] [place] [phone] 02/13/2024 Ivory Johnston Chronic migraine without aura, not intractable, without status migrainosus G43.709 and Idiopathic orofacial dystonia G24.4 [facility] [address] [place] [address] [employer] [address] [place] [phone] 12/17/2024 Rebeca Hope Allergic rhinitis du e to pollen J30.1 ; Allergic rhinitis due to animal (cat) (dog) hair and dander J30.81 ; Other allergic rhinitis J30.89 ; Other chronic allergic conjunctivitis H10.45 ; Headache R51 ; Vitamin D deficiency, unspecified E55.9 and Adverse effect of other drugs, medicaments and biological substances, subsequent encounter T50.995D [facility] [address] [place] [address] [employer] [address] [address] 03/05/2024 Rebeca Hope Allergic rhinitis du e to pollen J30.1 ; Allergic rhinitis due to animal (cat) (dog) hair and dander J30.81 ; Other allergic rhinitis J30.89 ; Other chronic allergic conjunctivitis H10.45 ; Headache R51 ; Vitamin D deficiency, unspecified E55.9 and Adverse effect of other drugs, medicaments and biological substances, subsequent encounter T50.995D [facility] [address] [place] [address] [employer] [address] [phone] 11/26/2024 Ivory Johnston Chronic migraine without aura, not intractable, without status migrainosus G43.709 and Chronic tension-type headache, intractable G44.[address] [employer] [address] [place] [address] 03/19/2024 Ivory Johnston Chronic migraine without aura, not intractable, without status migrainosus G43.709 and Chronic tension-type headache, intractable G44.[address] [employer] [address] [address] 01/09/2024 Harry Baker Chronic migraine without aura, not intractable, without status migrainosus G43.709 and Chronic tension-type headache, intractable G44.221 [facility] [place] ([address]) [facility] [address] [place] [address] 05/21/2024 Azam Bar[facility] [place] ([address]) [facility] [address] [place] [address] 08/03/2024 Azam Arevalo [address] [employer] [address] [phone] 01/22/2024 Azam Arevalo Allergic rhinitis du e to pollen J30.1 ; Other allergic rhinitis J30.89 ; Allergic rhinitis due to animal (cat) (dog) hair and dander J30.81 and Other chronic allergic conjunctivitis H10.45 [facility] [address] [place] [address] [employer] [address] [place] [phone] 09/03/2024 Ivory Johnston Chronic migraine without aura, not intractable, without status migrainosus G43.709 and Chronic tension-type headache, intractable G44.221 [facility] [place] ([address]) [address] [place] [address] 02/27/2024 Azam Arevalo Hypothyroidism, unspecified E03.9 ; Other fatigue R53.83 ; Abnormal weight gain R63.5 ; Decreased libido R68.82 ; Irritability and anger R45.4 ; Other amnesia R41.3 and Other malaise R53.81 [facility] [place] ([address]) [address] [place] [address] 04/08/2024 Azam Arevalo [facility] [place] ([address]) [address] [place] [address] 02/27/2024 Azam Arevalo [facility] [place] ([address]) [address] [place] [address] 02/13/2024 Azam Arevalo Hormone replacement therapy Z79.890 [facility] [place] ([address]) [address] [place] [address] 12/17/2024 Azam Arevalo [facility] [address] [place] [address] 09/02/2024 Rebeca Hope [facility] [address] [place] [address] [employer] [address] [place] [address] 01/05/2025 Rebeca Hope [address] [place] [phone] 11/16/2024 Rebeca Hope [address] [place] [phone] 09/19/2024 Rebeca Hope [facility] [place] [address] 08/26/2024 Rebeca Hope [address] [address] 06/12/2024 Ivory Johnston Chronic migraine without aura, not intractable, without status migrainosus G43.[address] [address] 05/28/2024 Rebeca Hope [address] [address] 03/29/2024 Rebeca Hope Chronic migraine without aura, not intractable, without status migrainosus G43.[address] [address] 03/25/2024 Ivory Johnston [address] [address] 10/08/2024 Ivory Johnston Chronic migraine without aura, not intractable, without status migrainosus G43.[address] [address] 03/05/2024 Ivory Johnston [address] [address] 02/25/2024 Ivory Johnsotn Chronic migraine without aura, not intractable, without status migrainosus G43.709 Assessments Encounter Date Diagnosis (ICD Code) Assessment Notes Treatment Notes Treatment Clinical Notes Section Notes 01/09/2024 Chronic migraine without aura, not intractable, without status migrainosus (ICD-10 - G43.709) -Abortive treatment plan: Nurtec -Preventive treatment plan: Schedule Botox injection. Give samples of Qulipta -Educated the patient on migraine lifestyle recommendations. I recommended the following measures: avoid known triggers of migraine, drink > 100 fluid ounces of non-caffeinated fluid daily, limit caffeine to 2 servings/day, sleep 7-8 hours/night and address any sleep concerns with us and report symptoms of snoring or fatigue; healthy management of stress; avoid treating headaches more than 2 days/week with abortive medication unless approved in treatment plan; can take Riboflavin 400 mg and Magnesium 500 mg daily as supplements; keep scheduled follow-up appointments 01/09/2024 Chronic tension-type headache, intractable (ICD-10 - G44.221) 01/22/2024 Allergic rhinitis due to pollen (ICD-10 - J30.1) 01/28/2024 Allergic rhinitis due to pollen (ICD-10 - J30.1) 02/13/2024 Idiopathic orofacial dystonia (ICD-10 - G24.4) 02/13/2024 Chronic migraine without aura, not intractable, without status migrainosus (ICD-10 - G43.709) -Abortive treatment plan: Discontinue Nurtec. Start Rizatriptan 10 mg. Patient counseled r.e. potential side effects.-Preventiv e treatment plan: Continue Topamax.-Educated the patient on migraine lifestyle recommendations. I recommended the following measures: avoid known triggers of migraine, drink > 100 fluid ounces of non-caffeinated fluid daily, limit caffeine to 2 servings/day, sleep 7-8 hours/night and address any sleep concerns with us and report symptoms of snoring or fatigue; healthy management of stress; avoid treating headaches more than 2 days/week with abortive medication unless approved in treatment plan; can take Riboflavin 400 mg and Magnesium 500 mg daily as supplements; keep scheduled follow-up appointments CancelRx Response got Denied on 2024-02-27 13:22:09 for 'Rizatriptan Benzoate 10 MG Tablet'Pharmacy Notes: Prescription not found. Contact Pharmacy by other means 02/13/2024 Hormone replacement therapy (ICD-10 - Z79.890) On T4 and T3 with endocrine. Ordered BHRT labs. Will discuss. 02/25/2024 Chronic migraine without aura, not intractable, without status migrainosus (ICD-10 - G43.709) 02/27/2024 Hypothyroidism, unspecified (ICD-10 - E03.9) Followed by endocrine on T4 and T3 with T3 level is 3.9. Continue per endocrine. 02/27/2024 Other fatigue (ICD-10 - R53.83) Check metabolic labs and consider GHRH. Consider TRT given testosterone levels. Start B complex 1 AM, 1PM x 1 month, then go to QD. Start ADK10 x 90 then ADK Evail thereafter. Consider Fatty15 Continue Omega3, increase to 4 grams per day 02/04/2024 Allergic rhinitis due to pollen (ICD-10 - J30.1) 03/05/2024 Allergic rhinitis due to animal (cat) (dog) hair and dander (ICD-10 - J30.81) Follow allergen avoidance, meds and continue SCIT as an adjunctive treatment to current regimen. Increase frequency PRN 03/19/2024 Chronic migraine without aura, not intractable, without status migrainosus (ICD-10 - G43.709) -Abortive treatment plan: Continue Eletriptan. Recommended GoodRx coupon for 12 tablets for $30. Gave samples of Zavzpret NS.-Preventive treatment plan: Continue Botox. Increase Topiramate to 75 mg daily. -Educated the patient on migraine lifestyle recommendations. I recommended the following measures: avoid known triggers of migraine, drink > 100 fluid ounces of non-caffeinated fluid daily, limit caffeine to 2 servings/day, sleep 7-8 hours/night and address any sleep concerns with us and report symptoms of snoring or fatigue; healthy management of stress; avoid treating headaches more than 2 days/week with abortive medication unless approved in treatment plan; can take Riboflavin 400 mg and Magnesium 500 mg daily as supplements; keep scheduled follow-up appointments 03/19/2024 Chronic tension-type headache, intractable (ICD-10 - G44.221) Recommended reducing stress and staying hydrated. Botox can help with this. 03/29/2024 Chronic migraine without aura, not intractable, without status migrainosus (ICD-10 - G43.709) 03/05/2024 Allergic rhinitis due to pollen (ICD-10 - J30.1) Toshia returns today with increased symptoms for the past several months. Initially had seen a clear improvement in her DAMIAN and upper airway symptoms and feels there is symptom regression. We have since reformulated with no noted local or systemic reactions. I've discussed ENT evaluation as it has been several years, LUZMARIA, GERD, and viruses as possible culprits to her seasonal symptoms. She does feel like immunotherapy has helped but continues to have PND. Likely complicated by reflux 04/02/2024 Allergic rhinitis due to pollen (ICD-10 - J30.1) 04/30/2024 Allergic rhinitis due to pollen (ICD-10 - J30.1) 06/01/2024 Allergic rhinitis due to pollen (ICD-10 - J30.1) 06/04/2024 Chronic migraine without aura, not intractable, without status migrainosus (ICD-10 - G43.709) -Abortive treatment plan: Continue Eletriptan.-Preven tive treatment plan: Continue Botox. Discontinue Topamax.-Educated the patient on migraine lifestyle recommendations. I recommended the following measures: avoid known triggers of migraine, drink > 100 fluid ounces of non-caffeinated fluid daily, limit caffeine to 2 servings/day, sleep 7-8 hours/night and address any sleep concerns with us and report symptoms of snoring or fatigue; healthy management of stress; avoid treating headaches more than 2 days/week with abortive medication unless approved in treatment plan; can take Riboflavin 400 mg and Magnesium 500 mg daily as supplements; keep scheduled follow-up appointments 06/04/2024 Chronic tension-type headache, intractable (ICD-10 - G44.221) Discussed hydration and stress reduction. Botox has helped with these symptoms. 06/12/2024 Chronic migraine without aura, not intractable, without status migrainosus (ICD-10 - G43.709) 06/29/2024 Allergic rhinitis due to pollen (ICD-10 - J30.1) 08/03/2024 Allergic rhinitis due to pollen (ICD-10 - J30.1) 09/03/2024 Chronic migraine without aura, not intractable, without status migrainosus (ICD-10 - G43.709) -Continue current anti-migraine therapies 09/03/2024 Chronic tension-type headache, intractable (ICD-10 - G44.221) -Improved after botulinum toxin for chronic migraine. Discussed stress reduction, adequate sleep, adequate hydration, magnesium supplementation, etc 09/08/2024 Allergic rhinitis due to pollen (ICD-10 - J30.1) 10/08/2024 Allergic rhinitis due to pollen (ICD-10 - J30.1) 10/08/2024 Chronic migraine without aura, not intractable, without status migrainosus (ICD-10 - G43.709) 10/12/2024 Allergic rhinitis due to pollen (ICD-10 - J30.1) 10/15/2024 Allergic rhinitis due to pollen (ICD-10 - J30.1) 11/17/2024 Allergic rhinitis due to pollen (ICD-10 - J30.1) 11/26/2024 Chronic migraine without aura, not intractable, without status migrainosus (ICD-10 - G43.709) -Abortive treatment plan: Continue Eletriptan. Gave samples of Ubrelvy, Nurtec and Zavzpret. CGRP blocking medication samples have been ineffective in the past; however, she is agreeable to try again.-Preventive treatment plan: Discontinue Botox per patient's request. Start propranolol 10 mg qhs x 7 days then increase to 20 mg qhs.-Educated the patient on migraine lifestyle recommendations. I recommended the following measures: avoid known triggers of migraine, drink > 100 fluid ounces of non-caffeinated fluid daily, limit caffeine to 2 servings/day, sleep 7-8 hours/night and address any sleep concerns with us and report symptoms of snoring or fatigue; healthy management of stress; avoid treating headaches more than 2 days/week with abortive medication unless approved in treatment plan; can take Riboflavin 400 mg and Magnesium 500 mg daily as supplements; keep scheduled follow-up appointments 11/26/2024 Chronic tension-type headache, intractable (ICD-10 - G44.221) 12/17/2024 Allergic rhinitis due to animal (cat) (dog) hair and dander (ICD-10 - J30.81) Follow allergen avoidance, meds and continue SCIT as an adjunctive treatment to current regimen. Increase frequency PRN 12/17/2024 Allergic rhinitis due to pollen (ICD-10 - J30.1) Toshia returns today with increased symptoms for the past several months. Initially had seen a clear improvement in her DAMIAN and upper airway symptoms and feels there is symptom regression. We have since reformulated with no noted local or systemic reactions. I've discussed ENT evaluation as it has been several years, LUZMARIA, GERD, and viruses as possible culprits to her seasonal symptoms. She does feel like immunotherapy has helped but continues to have PND. Likely complicated by reflux. Overall this year has had minimal symptoms. Recommend continuing shots monthly, increasing dosing in peak seasons PRN. -dosing today tolerated w/o reaction -f/u in 6 months 12/17/2024 Other allergic rhinitis (ICD-10 - J30.89) Follow allergen avoidance, meds and continue SCIT as an adjunctive treatment to current regimen. Increase frequency PRN 10/08/2024 Other allergic rhinitis (ICD-10 - J30.89) 11/17/2024 Other allergic rhinitis (ICD-10 - J30.89) 10/15/2024 Other allergic rhinitis (ICD-10 - J30.89) 10/12/2024 Other allergic rhinitis (ICD-10 - J30.89) 09/08/2024 Other allergic rhinitis (ICD-10 - J30.89) 06/01/2024 Other allergic rhinitis (ICD-10 - J30.89) 08/03/2024 Other allergic rhinitis (ICD-10 - J30.89) 06/29/2024 Other allergic rhinitis (ICD-10 - J30.89) 04/30/2024 Other allergic rhinitis (ICD-10 - J30.89) 04/02/2024 Other allergic rhinitis (ICD-10 - J30.89) 03/05/2024 Other allergic rhinitis (ICD-10 - J30.89) Follow allergen avoidance, meds and continue SCIT as an adjunctive treatment to current regimen. Increase frequency PRN 02/04/2024 Other allergic rhinitis (ICD-10 - J30.89) 02/27/2024 Abnormal weight gain (ICD-10 - R63.5) 01/28/2024 Other allergic rhinitis (ICD-10 - J30.89) 01/22/2024 Other allergic rhinitis (ICD-10 - J30.89) 01/28/2024 Allergic rhinitis due to animal (cat) (dog) hair and dander (ICD-10 - J30.81) 01/22/2024 Allergic rhinitis due to animal (cat) (dog) hair and dander (ICD-10 - J30.81) 02/27/2024 Decreased libido (ICD-10 - R68.82) 03/05/2024 Other chronic allergic conjunctivitis (ICD-10 - H10.45) Given ocular signs and symptoms I encouraged allergy avoidance measures and meds as above. If symptoms persist, consider adding additional medications including intraocular antihistamine/mast cell stabilizer, PRN and continue SCIT as an adjunctive measure. Increase frequency PRN 02/04/2024 Allergic rhinitis due to animal (cat) (dog) hair and dander (ICD-10 - J30.81) 04/02/2024 Allergic rhinitis due to animal (cat) (dog) hair and dander (ICD-10 - J30.81) 04/30/2024 Allergic rhinitis due to animal (cat) (dog) hair and dander (ICD-10 - J30.81) 06/01/2024 Allergic rhinitis due to animal (cat) (dog) hair and dander (ICD-10 - J30.81) 06/29/2024 Allergic rhinitis due to animal (cat) (dog) hair and dander (ICD-10 - J30.81) 08/03/2024 Allergic rhinitis due to animal (cat) (dog) hair and dander (ICD-10 - J30.81) 09/08/2024 Allergic rhinitis due to animal (cat) (dog) hair and dander (ICD-10 - J30.81) 10/08/2024 Allergic rhinitis due to animal (cat) (dog) hair and dander (ICD-10 - J30.81) 10/12/2024 Allergic rhinitis due to animal (cat) (dog) hair and dander (ICD-10 - J30.81) 10/15/2024 Allergic rhinitis due to animal (cat) (dog) hair and dander (ICD-10 - J30.81) 11/17/2024 Allergic rhinitis due to animal (cat) (dog) hair and dander (ICD-10 - J30.81) 12/17/2024 Other chronic allergic conjunctivitis (ICD-10 - H10.45) Given ocular signs and symptoms I encouraged allergy avoidance measures and meds as above. If symptoms persist, consider adding additional medications including intraocular antihistamine/mast cell stabilizer, PRN and continue SCIT as an adjunctive measure. Increase frequency PRN 12/17/2024 Headache (ICD-10 - R51) Chronic history w/o symptoms concerning for tension, sinus vs. migraine headaches, with prior response to SCIT. Now followed by Neurology who is trying to help find a good regimen 11/17/2024 Other chronic allergic conjunctivitis (ICD-10 - H10.45) 10/15/2024 Other chronic allergic conjunctivitis (ICD-10 - H10.45) 10/12/2024 Other chronic allergic conjunctivitis (ICD-10 - H10.45) 10/08/2024 Other chronic allergic conjunctivitis (ICD-10 - H10.45) 09/08/2024 Other chronic allergic conjunctivitis (ICD-10 - H10.45) 08/03/2024 Other chronic allergic conjunctivitis (ICD-10 - H10.45) 06/29/2024 Other chronic allergic conjunctivitis (ICD-10 - H10.45) 06/01/2024 Other chronic allergic conjunctivitis (ICD-10 - H10.45) 04/30/2024 Other chronic allergic conjunctivitis (ICD-10 - H10.45) 04/02/2024 Other chronic allergic conjunctivitis (ICD-10 - H10.45) 03/05/2024 Headache (ICD-10 - R51) Chronic history w/o symptoms concerning for tension, sinus vs. migraine headaches, with prior response to SCIT. Now followed by Neurology who is trying to help find a good regimen 02/27/2024 Irritability and anger (ICD-10 - R45.4) 02/04/2024 Other chronic allergic conjunctivitis (ICD-10 - H10.45) 01/22/2024 Other chronic allergic conjunctivitis (ICD-10 - H10.45) 01/28/2024 Other chronic allergic conjunctivitis (ICD-10 - H10.45) 02/27/2024 Other amnesia (ICD-10 - R41.3) 03/05/2024 Vitamin D deficiency, unspecified (ICD-10 - E55.9) continue supplementation - recheck over winter12/17/2024 Vitamin D deficiency, unspecified (ICD-10 - E55.9) On supplementation - 12/17/2024 Adverse effect of other drugs, medicaments and biological substances, subsequent encounter (ICD-10 - T50.995D) Historically large local reactions without systemic symptoms. No interval local reactions. 03/05/2024 Adverse effect of other drugs, medicaments and biological substances, subsequent encounter (ICD-10 - T50.995D) Historically large local reactions without systemic symptoms. No interval local reactions. In fact, would like to titrate to higher dosing which was discussed today, continue triple pre-med and titrate as tolerated to 0.5-0.6 mL 02/27/2024 Other malaise (ICD-10 - R53.81) 03/05/2024 Other 12/17/2024 Other Plan Of Treatment Next Appt Details Provider Name:Azam BergAntonio Arevalo , 01/14/2025 03:30:00 PM, [address] [employer], [address], [address], Provider Name:Ivory arguello, 02/25/2025 02:00:00 PM, [address] [employer], [address], [address], Provider Name:Rebeca Hope , 08/12/2025 02:30:00 PM, [address] [employer], [address], [place], [address], Insurance Providers Payer Name Payer Address Payer Phone Subscriber Number Group Number Insured Name Patient Relationship to Insured Coverage Start Date Coverage End Date [facility] [employer] [address] [address] [place] [address] [phone] [id number] Toshia Horowitz Self - patient is the insured 3 Medical (General) History Medical History History ICD Code Hypothyroidism, unspecified Allergic rhinitis due to pollen Allergic rhinitis due to animal (cat) (d og) hair and dander Other allergic rhinitis Other chronic allergic conjunctivitis Headache Obstructive Sleep apnea Arthritis Chronic migraine Surgical History Surgery Date(Month/Year) Tonsillectomy 05/13/2000 tubes 05/13/1985 tubes 05/13/1983 orthoplasty 12/21/2016 Bladder Sling 02/2019 uterine ablation 10/2022 Hospitalization History Reason Date(Month/Year) 11/30/2010 05/09/2009 07/15/2007
--- OUTSIDE RECORDS SUMMARY | 2025-01-06 13:16 | XMS_ITS | Clinical Summary ---
Author Organization [facility] Address [address] [place] [address] Care Team Providers Care Event Specialist Food Demonstrator Name Role Phone Ten Yu PA-C Primary Care Provider [phone] Maritza Fry MD Unavailable [phone] Juan Manuel Vasquez MD Unavailable [phone] Atif Charles DPM Unavailable [phone] Source Comments [facility],non-owned Affiliates and Associated Physician Practices is amultiple site organization consisting of ambulatory clinics and hospital sitesin [place], [place], [place] and [place]. This disclosure is being madepursuant to the Care Everywhere program and may not contain all information available regarding this patient. Last updated 18.[facility] [employer] Allergies No known active allergies Medications * Be aware that medications may not be up to date on this document. Alwaysverify current medications with the patient. 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 Depression 01/31/2017 Overview (01/31/2017): With Anxiety component Family History Medical History Relation Name Comments Arthritis - Rheumatoid Mother Asthma Mother Hypertension Mother Thyroid Disease Mother Asthma Sister Thyroid Disease Sister Diabetes - Type 2 Neg Hx Osteoporosis Neg Hx Relation Name Status Comments Mother Sister Social History Tobacco Use Types Packs/Day Years Used Date Smoking Tobacco: Never Smokeless Tobacco: Never Alcohol Use Standard Drinks/Week Comments Yes 2 (1 standard drink = 0.6 oz pur e alcohol) Comments Unknown Sex and Gender Information Value Date Recorded Sex Assigned at Not on file Legal Sex Female 12:18 PM CDT Gender Identity Not on file Sexual Orientation Not on file Last Filed Vital Signs Vital Sign Reading Time Taken Comments Blood Pressure 100/60 01/31/2017 11:46 AM CDT Pulse 84 01/31/2017 11:46 AM CDT Temperature - - Respiratory Rate - - Oxygen Saturation - - Inhaled Oxygen Concentration - - Weight 83.9 kg (185 lb) 01/31/2017 11:46 AM CDT Height 170.2 cm (5' 7) 01/31/2017 11:46 AM CDT Body Mass Index 28.98 01/31/2017 11:46 AM CDT Plan of Treatment Health Maintenance Due Date Last Done Comments LIPID TESTING 1980 MAMMOGRAM 1980 HIV SCREENING 09/01/1995 HEPATITIS C SCREENING 08/27/1998 DTAP/TDAP/TD VACCINES (1 - Tdap) 09/01/1999 HEPATITIS B VACCINE (1 of 3 - 19+ 3-dose series) 09/01/1999 HPV VACCINE (1 - 3-dose SCDM series) 09/01/2007 COVID-19 VACCINE ( - 2023-2 5 season) 2024 DEPRESSION SCREENING 05/13/2024 INFLUENZA VACCINE (#1) 2025 ZOSTER VACCINE (1 of 2) 2030 HIB VACCINE Aged Out No longer eligi ble based on patient's age to complete this topic MENINGOCOCCAL (Group B) VACC INE SHARED DECISION-MAKING Aged Out No longer eligibl e based on patient's age to complete this topic MENINGOCOCCAL GROUPS A/C/Y/W VACCINE Aged Out No longer eligible b ased on patient's age to complete this topic PNEUMOCOCCAL VACCINE Aged Out No long er eligible based on patient's age to complete this topic Insurance ANTHEM Care Teams Event Specialist Food Demonstrator Relationship Specialty Start Date End Date Ten Yu PA-C PCP - General Physician Books Salesperson 01/29/17 [place] [id number] [facility] [address] [place] [address] Endocrinology 01/31/17 Juan Manuel Vasquez MD [address] [facility] [address] [place], [place] [id number] Obstetrics and Gynecology 01/31/17 Atif Charles DPM [address] [address] Podiatry 01/31/17
--- OUTSIDE RECORDS SUMMARY | 2025-01-06 13:16 | XMS_ITS | Encounter Summary ---
Author Organization [facility] Care Team Providers Care Bevel Polisher Name Role Phone Ten Yu Primary Care Provider [phone] Encounter Details Date Type Department Care Team (Latest Contact Info) Description 03/30/2017 Orders Only [facility]INCON[facility] Provider, MD Richard [address] [place] [id number] Social History Tobacco Use Types Packs/Day Years Used Date Smoking Tobacco: Never Comments Unknown Sex and Gender Information Value Date Recorded Sex Assigned at Not on file Legal Sex Female 3:46 AM LOGGING RAFTER LABORER Gender Identity Female 02/17/2020 12:44 PM CDT Sexual Orientation Straight 02/17/2020 12 :44 PM CDT documented as of this encounter Plan of Treatment Not on file documented as of this encounter Procedures Procedure Name Priority Date/Time Associated Diagnosis Comments SCAN - LABS 03/30/2017 12:00 AM LOGGING RAFTER LABORER documented in this encounter Results * SCAN - LABS (03/30/2017 12:00 AM LOGGING RAFTER LABORER) Narrative 03/30/2017 12:00 AM LOGGING RAFTER LABORER Ordered by an unspecified provider. Historical Provider Final Res ult documented in this encounter Visit Diagnoses Not on filedocumented in this encounter Care Teams Bevel Polisher Relationship Specialty Start Date End Date Ten Yu PA PCP - General 10/09/18 documented as of this encounter
== END 2025-01-06 13:03 | disposition home or self-care (01) ==
LOC: ANHFOHIMG 13:03
PROVIDERS: PCP Obstetrics & Gynecology; Visit Provider Obstetrics & Gynecology
DX: N60.02 Solitary cyst of left breast (principal); N63.24 Unspecified lump in the left breast, lower inner quadrant
CPT/HCPCS: 76642; 77061; 77065; G0279

== ENCOUNTER 2025-02-09 16:13 | Outpatient (CLI) | payer OTHER, SELFPAY ==
--- NOTE | ~2025-02-09 | XR_ITS ---
XR lumbar spine 2-3V Indication: Dorsalgia, unspecified Comparison: None Findings: Mild dextroconvex scoliosis. Minimal loss of vertebral height. No fracture or subluxation. Moderate loss of disc at L5-S1. Soft tissues unremarkable Impression: No acute abnormality. Reviewed, dictated and finalized at location P. Impression: No acute abnormality.
== END 2025-02-09 16:14 | disposition home or self-care (01) ==
PROVIDERS: PCP Physician Assistant; Visit Provider Physician Assistant
DX: M54.9 Dorsalgia, unspecified (principal)
CPT/HCPCS: 72100